=== PATIENT | male | born 1955 | race Two or more races ===

== ENCOUNTER 2020-11-06 05:00 | Day surgery (SDC) | payer OTHER ==
[~2020-11-06 05:00] MED LIST: ATACAND HCT 161 EACH PO; ATIVAN2 M1 PO; CATAFLAN PO; NORFL PO; SYNTHROID50 MCG PO
[2020-11-06] MEDS ORDERED: DUI500 PO (10:32)
[2020-11-06] MEDS ORDERED: ULTRACET PO (10:32)
== END 2020-11-06 16:10 | disposition home or self-care (01) ==
LOC: CIR.AMB 05:00
PROVIDERS: ATTEND Orthopaedic Surgery Sports Medicine
DX: M23.322 Other meniscus derangements, posterior horn of medial meniscus, left knee (principal); M23.342 Other meniscus derangements, anterior horn of lateral meniscus, left knee; M23.352 Other meniscus derangements, posterior horn of lateral meniscus, left knee; M65.862 Other synovitis and tenosynovitis, left lower leg; Z20.822 Contact with and (suspected) exposure to COVID-19